=== PATIENT | male | born 1995 | race Native Hawaiian/Other Pacific Islander ===

== ENCOUNTER 2020-06-24 23:10 | Emergency (ER) | payer SELFPAY ==
[2020-06-24] MEDS ORDERED: SODIUM CHLORIDE 0.9% 1000 ML 1,000 ML IV ONE (23:28)
--- NOTE | 2020-06-24 23:36 | Emergency Department Report ---
HPI - General Chief Complaint: Overdose Time Seen by Provider: 06/24/20 23:21 - HPI HPI: Room 24 The patient is a 25-year-old male present with a chief complaint of altered mental status. Patient brought in by EMS after a possible overdose. Apparently per the girlfriend the patient was seen around friends who used GHB. The patient was reportedly not behaving like himself and the girlfriend attempted to wake him up by placing him in the shower. EMS was called and administered 2 mg of Narcan prior to arrival. During my interview the patient mumbles to himself but does not answer questions. ED Past Medical Hx - Past Medical History Previous Medical History?: No - Surgical History Past Surgical History?: No - Family History Family history: no significant - Social History Smoking Status: Unknown if ever smoked ED Review of Systems ROS: Stated complaint: OVERDOSE Other details as noted in HPI Comment: Unobtainable due to pts medical conditions Physical Exam - Physical Exam Physical Exam: GENERAL: The patient is well-developed well-nourished male curled up in position on stretcher occasionally mumbling to himself. [] HEENT: Normocephalic. Atraumatic. Patient has moist mucous membranes. NECK: Supple. Trachea midline CHEST/LUNGS: Clear to auscultation. There is no respiratory distress noted. HEART/CARDIOVASCULAR: Regular. There is no tachycardia. There is no gallop rub or murmur. ABDOMEN: Abdomen is soft, nontender. Patient has normal bowel sounds. There is no abdominal distention. SKIN: There is no rash. There is no edema. There is no diaphoresis. NEURO: The patient is asleep but awakens to tactile and verbal stimuli. Patient mumbles to himself but does not answer questions. The patient is not cooperative with neurologic exam. MUSCULOSKELETAL: There is no evidence of acute injury. ED Course - Reevaluation(s) Reevaluation #1: 06/25/20 01:32 Patient now awake. Patient admits to consuming GHB. Patient denies complaints ED Medical Decision Making - Lab Data Result diagrams: 06/25/20 Unknown 06/25/20 01:50 Laboratory Tests 06/24/20 06/24/20 06/25/20 23:40 23:40 00:05 WBC RBC Hgb Hct MCV MCH MCHC RDW Plt Count Lymph % (Auto) Liberty % (Auto) Eos % (Auto) Baso % (Auto) Lymph # (Auto) [place] # (Auto) Eos # (Auto) Baso # (Auto) Seg Neutrophils % Seg Neutrophils # Sodium Potassium Chloride Carbon Dioxide Anion Gap BUN Creatinine Estimated GFR BUN/Creatinine Ratio Glucose Calcium Total Bilirubin AST ALT Alkaline Phosphatase Ammonia 49.0 Total Creatine Kinase CK-MB (CK-2) CK-MB (CK-2) Rel Index Troponin T Total Protein Albumin Albumin/Globulin Ratio Urine Opiates Screen Presumptive negative Urine Methadone Screen Presumptive negative Ur Barbiturates Screen Presumptive negative Ur Phencyclidine Scrn Presumptive negative Ur Amphetamines Screen Presumptive positive U Benzodiazepines Scrn Presumptive negative Urine Cocaine Screen Presumptive negative U Marijuana (THC) Screen Presumptive positive Drugs of Abuse Note Disclamer Plasma/Serum Alcohol < 0.01 06/25/20 06/25/20 01:50 Unknown WBC 10.1 RBC 5.94 H Hgb 19.1 H Hct 54.1 H MCV 91 MCH 32 MCHC 35 H RDW 13.8 Plt Count 256 Lymph % (Auto) 14.6 Liberty % (Auto) 7.2 Eos % (Auto) 1.2 Baso % (Auto) 0.9 Lymph # (Auto) 1.5 Liberty # (Auto) 0.7 Eos # (Auto) 0.1 Baso # (Auto) 0.1 Seg Neutrophils % 76.1 H Seg Neutrophils # 7.7 Sodium 142 Potassium 3.9 Chloride 100.6 Carbon Dioxide 23 Anion Gap 22 BUN 6 L Creatinine 1.0 Estimated GFR > 60 BUN/Creatinine Ratio 6 Glucose 88 Calcium 9.7 Total Bilirubin 0.60 AST 26 ALT 17 Alkaline Phosphatase 92 Ammonia Total Creatine Kinase 556 H CK-MB (CK-2) 4.7 H CK-MB (CK-2) Rel Index 0.8 Troponin T < 0.010 Total Protein 7.7 Albumin 5.1 H Albumin/Globulin Ratio 2.0 Urine Opiates Screen Urine Methadone Screen Ur Barbiturates Screen Ur Phencyclidine Scrn Ur Amphetamines Screen U Benzodiazepines Scrn Urine Cocaine Screen U Marijuana (THC) Screen Drugs of Abuse Note Plasma/Serum Alcohol - EKG Data -: EKG Interpreted by Mo EKG shows normal: sinus rhythm Rate: normal - EKG Data When compared to previous EKG there are: previous EKG unavailable Interpretation: nonspecific ST-T wave walker (Early repolarization) - Differential Diagnosis Substance abuse, electrolyte abnormality, rhabdomyolysis, Critical care attestation.: If time is entered above; I have spent that time in minutes in the direct care of this critically ill patient, excluding procedure time. ED Disposition Clinical Impression: Polysubstance abuse Disposition: DC-01 TO HOME OR SELFCARE Is pt being admited?: No Does the pt Need Aspirin: No Condition: Stable Instructions: Polysubstance Abuse (ED) Additional Instructions: Return to the emergency department should you develop worsening symptoms, inability to tolerate food or liquids, high fever or any other concerns Referrals: PRIMARY CARE, [Primary Care Provider] - 3-5 Days [facility] [Outside] - 3-5 Days
[2020-06-25 00:27] LABS: Amphetamine Screen,Urine PRESUMPTIVE POSITIVE; Benzodiazepines Screen,Urine PRESUMPTIVE NEGATIVE; Cannabinoid Screen,Urine PRESUMPTIVE POSITIVE; Cocaine Screen,Urine PRESUMPTIVE NEGATIVE; Methadone Screen,Urine PRESUMPTIVE NEGATIVE; Opiate Screen,Urine PRESUMPTIVE NEGATIVE
[2020-06-25 00:59] LABS: Basophils # (Auto) 0.1 K/mm3 (0.0-0.1); Basophils % (Auto) 0.9 % (0.0-1.8); Eosinophils # (Auto) 0.1 K/mm3 (0.0-0.4); Eosinophils % (Auto) 1.2 % (0.0-4.3); Lymphocytes # (Auto) 1.5 K/mm3 (1.2-5.4); Lymphocytes % (Auto) 14.6 % (13.4-35.0); Mean Corpuscular HGB Conc 35 % (32-34); Mean Corpuscular Volume 91 fl (84-94); Monocytes # (Auto) 0.7 K/mm3 (0.0-0.8); Monocytes % (Auto) 7.2 % (0.0-7.3); Red Blood Count 5.94 M/mm3 (3.65-5.03); Red Cell Distribution Width 13.8 % (13.2-15.2)
[2020-06-25 01:03] LABS: Hematocrit 54.1 % (35.5-45.6); Hemoglobin 19.1 gm/dl (11.8-15.2)
[2020-06-25 01:04] LABS: Platelet Count 256 K/mm3 (140-440)
[2020-06-25] MEDS ORDERED: SODIUM CHLORIDE 0.9% 1000 ML 1,000 ML IV ONE (01:14)
[2020-06-25 02:14] LABS: Creatine Kinase MB 4.7 ng/mL (0.0-4.0)
[2020-06-25 02:15] LABS: Alanine Aminotransferase 17 units/L (7-56); Albumin 5.1 g/dL (3.9-5); BUN/Creatinine Ratio 6; Blood Urea Nitrogen 6 mg/dL (9-20); Calcium 9.7 mg/dL (8.4-10.2); Hemolysis Index 29
[2020-06-25 03:30] VITALS: BP 115/72
== END 2020-06-25 04:06 | disposition home or self-care (01) ==
LOC: ED 23:10
DX: F19.10 Other psychoactive substance abuse, uncomplicated (principal)
CPT/HCPCS: 36415; 80053; 80307; 82140; 82550; 82553; 84484; 85025; 93005; 96360; 96361; 99284; J7030; 80320; G0480

== ENCOUNTER 2020-12-06 20:21 | Emergency (ER) | payer SELFPAY ==
[2020-12-06] MEDS ORDERED: NALOXONE 0.4 MG/1 ML INJ IV ONE (20:27)
[2020-12-06] MEDS ORDERED: SODIUM CHLORIDE 0.9% 1000 ML 1,000 ML IV ONE ×2 (20:28)
--- NOTE | 2020-12-06 20:32 | Emergency Department Report ---
History of Present Illness - General Chief Complaint: Overdose Stated Complaint: POSS OD Time Seen by Provider: 12/06/20 20:27 Source: family Mode of arrival: Ambulatory Limitations: Altered Mental Status - History of Present Illness Initial Comments: Chief complaint: Overdose, "I think he just took too much medicine." HPI: This is a 25-year-old male history of polysubstance abuse who is brought in by his brother for likely drug overdose. He was called by friends. He was at a friend's home when patient started twitching. He became less responsive. He was drooling. Brother brought his brother to the emergency department. He notes that his brother likely took Xanax and opioid in pill form. He has been using heavily for at least 6 months. No known history of depression. His brother thinks that he "needs help". According to brother Mr. Casper is unemployed. Mr. Casper lives with his girlfriend who also is a drug user. Mr. Casper has been known to use marijuana and alcohol in addition to prescription medications. Patient is currently drooling unresponsive but moving purposefully According to electronic medical record, patient was seen at this hospital June 2020, patient overdose after taking GHB. Complaint: accidental overdose -: This evening How Overdose Was Discovered: called family/friend Context: Accidental Overdose: wanted to get high Associated Symptoms: other (Lethargy, twitching, drooling) Treatments Prior to Arrival: other (Brother brought patient to the emergency department) - Related Data Allergies Allergy/AdvReac Type Severity Reaction Status Date / Time Unable to Assess Allergy Unverified 06/24/20 23:16 ED Review of Systems ROS: Stated complaint: POSS OD Other details as noted in HPI Comment: Unobtainable due to pts medical conditions (Patient is altered, intoxicated) ED Past Medical Hx - Past Medical History Previous Medical History?: No - Surgical History Past Surgical History?: No - Social History Smoking Status: Current Every Day Smoker Substance Use Type: Alcohol, Marijuana, Non Opiate Pain, Prescribed, Tranquilizers ED Physical Exam - General Limitations: Altered Mental Status General appearance: lethargic, other (Drooling restless pulls away from IV stick) - Head Head exam: Present: atraumatic, normocephalic - Eye Eye exam: Absent: scleral icterus, conjunctival injection - ENT ENT exam: Present: mucous membranes moist - Neck Neck exam: Present: normal inspection, full ROM - Respiratory Respiratory exam: Present: normal lung sounds bilaterally. Absent: respiratory distress, wheezes, rales, rhonchi, stridor - Cardiovascular Cardiovascular Exam: Present: regular rate, normal rhythm, normal heart sounds. Absent: systolic murmur, diastolic murmur, rubs, gallop - GI/Abdominal GI/Abdominal exam: Present: soft, normal bowel sounds. Absent: distended, tenderness, guarding, rebound - Rectal Rectal exam: Present: deferred - Extremities Exam Extremities exam: Present: normal inspection - Back Exam Back exam: Present: normal inspection - Neurological Exam Neurological exam: Present: altered - Psychiatric Psychiatric exam: Present: flat affect - Skin Skin exam: Present: warm, dry, intact, pallor. Absent: rash ED Course Vital Signs 12/06/20 12/06/20 20:29 20:42 Temperature 97.0 F L Pulse Rate 70 Respiratory 12 12 Rate Blood Pressure 113/60 O2 Sat by Pulse 90 Oximetry - Reevaluation(s) Reevaluation #1: 12/07/20 00:33 I reevaluation. Patient is sleeping but maintaining airway. He does withdraw from noxious stimuli. He will not answer questions. ED Medical Decision Making - Radiology Data Radiology results: image reviewed interpreted by me: personal interpretation of Head CT without contrast: no ICH, no large mass - Medical Decision Making Accidental drug overdose: Polysubstance abuse with benzodiazepine and opioid medication in pill form. After returning from CT scan, patient now is awake alert. He is following instructions. He is stable for discharge. Critical Care Time: Yes Critical care time in (mins) excluding proc time.: 40 Critical care attestation.: If time is entered above; I have spent that time in minutes in the direct care of this critically ill patient, excluding procedure time. 40 minutes of critical care time excluding procedures were used in the care of the patient. I came immediately to the bedside upon patient's arrival. I was called overhead out of another patient's room for critically ill patient. I spoke with respiratory therapist. I respiratory therapist agreed that patient did not require intubation. I discussed treatment plan with the nursing team members. Patient immediately received naloxone with response of mild agitation. I obtained history from brother at the bedside. I was concerned for cardiovascular collapse. Concern for imminent airway compromise. Concern for aspiration. Patient required multiple interventions and reassessments. ED Disposition Clinical Impression: Accidental overdose, Polysubstance abuse, Opioid abuse with intoxication with complication, Benzodiazepine overdose Disposition: DC-01 TO HOME OR SELFCARE Is pt being admited?: No Does the pt Need Aspirin: No Condition: Stable Instructions: Substance Use Disorder, Opioid Use Disorder Referrals: [facility] [Outside] - 3-5 Days
--- NOTE | 2020-12-07 01:54 | Cat Scan Report ---
CT HEAD WITHOUT CONTRAST INDICATION / CLINICAL INFORMATION: altered mental status twitching. TECHNIQUE: All CT scans at this location are performed using CT dose reduction for ALARA by means of automated exposure control. COMPARISON: None available. FINDINGS: HEMORRHAGE: None. EXTRA-AXIAL SPACES: Normal in size and morphology for the patient's age. VENTRICULAR SYSTEM: Normal in size and morphology for the patient's age. CEREBRAL PARENCHYMA: No significant abnormality. No acute territorial infarct. MIDLINE SHIFT / HERNIATION: None. CEREBELLUM / BRAINSTEM: No significant abnormality. ORBITS: Normal as visualized. SOFT TISSUES: No significant abnormality. SKULL: No significant abnormality. PARANASAL SINUSES / MASTOID AIR CELLS: There is right maxillary sinus disease. There is mild mucosal thickening in the left maxillary sinus ADDITIONAL FINDINGS: None. IMPRESSION: 1. No acute intracranial abnormality. 2. There is maxillary sinus disease. Signer Name: Shubham Barth MD Signed: 12/07/2020 1:49 AM Workstation Name: [id number]
[2020-12-07 06:09] VITALS: BP 108/71
== END 2020-12-07 06:00 | disposition home or self-care (01) ==
LOC: ED 20:21
DX: T42.4X1A Poisoning by benzodiazepines, accidental (unintentional), initial encounter (principal); F17.200 Nicotine dependence, unspecified, uncomplicated; F19.10 Other psychoactive substance abuse, uncomplicated; F12.90 Cannabis use, unspecified, uncomplicated; F11.129 Opioid abuse with intoxication, unspecified; Y92.89 Other specified places as the place of occurrence of the external cause
CPT/HCPCS: 36415; 70450; 96361; 96374; 99284; J7030; 80320; G0480